=== PATIENT | male | born 1940 | race African-American/Black ===

== ENCOUNTER 2022-01-18 17:32 | Emergency (ER) | payer MEDICARE, MEDICAID ==
[~2022-01-18] VITALS: Ht 177.8 cm; Wt 82.0 kg
[2022-01-18 19:18] LABS: CLARITY URINE CLEAR (CLEAR); COLOR URINE YELLOW (YELLOW); KETONES URINE NEGATIVE (NEGATIVE); LEUKOCYTE ESTERASE URINE NEGATIVE (NEGATIVE); NITRITE URINE NEGATIVE (NEGATIVE); OCCULT BLOOD URINE NEGATIVE (NEGATIVE); PH URINE 6.5 (4.5-8.0); PROTEIN URINE NEGATIVE (NEGATIVE); SPECIFIC GRAVITY URINE 1.011 (1.005-1.030); UROBILINOGEN URINE 0.2 E.U./dL (0.2-1.0)
[2022-01-18] MEDS ORDERED: CEFTRIAXONE SODIUM 500 MG/VIAL IM ONE (20:45)
[2022-01-18] MEDS ORDERED: DOXY100T28 MT (21:26)
[2022-01-18] MEDS ORDERED: IBUP-2029 MT (21:26)
[2022-01-18 21:30] VITALS: BP 135/85
[2022-01-21 04:08] LABS: NEISSERIA GONORRHOEAE NAA Negative (Negative)
== END 2022-01-18 21:35 | disposition home or self-care (01) ==
LOC: ER 17:32
DX: N45.1 Epididymitis (principal); N43.3 Hydrocele, unspecified
CPT/HCPCS: 76870; 81003; 87491; 87591; 93976; 96372; 99284; J0696